=== PATIENT | female | born 1970 ===

== ENCOUNTER 2022-02-07 12:39 | Outpatient (CLI) | payer OTHER | END 2022-02-07 12:40 | disposition home or self-care (01) | LOC: CSHLAB 12:39 | PROVIDERS: ATTEND Internal Medicine Gastroenterology | DX: Z20.822 Contact with and (suspected) exposure to COVID-19 (principal); R10.9 Unspecified abdominal pain | CPT/HCPCS: 87811 ==

== ENCOUNTER 2022-03-06 15:33 | Outpatient (CLI) | payer OTHER | END 2022-03-06 15:34 | disposition home or self-care (01) | LOC: CSHLAB 15:33 | PROVIDERS: ATTEND Internal Medicine Gastroenterology | DX: R10.9 Unspecified abdominal pain (principal); Z20.822 Contact with and (suspected) exposure to COVID-19 | CPT/HCPCS: 87811 ==

== ENCOUNTER 2022-03-09 07:25 | Day surgery (SDC) | payer OTHER ==
[2022-02-07 14:16] VITALS: BMI 30.4
[2022-03-09] MEDS ORDERED: Lidocaine 1% MPF 2 ML VIAL ONE (08:04)
[2022-03-09] MEDS ORDERED: PROPOFOL 20 ML ONE (09:11)
== END 2022-03-09 11:35 | disposition home or self-care (01) ==
LOC: CSHSDC 07:25
PROVIDERS: ATTEND Internal Medicine Gastroenterology
PROC: 0DB68ZX Excision of Stomach, Via Natural or Artificial Opening Endoscopic, Diagnostic (ICD-10-PCS; principal; 2022-03-09)
PROC: 0DB38ZX Excision of Lower Esophagus, Via Natural or Artificial Opening Endoscopic, Diagnostic (ICD-10-PCS; principal; 2022-03-09)
DX: K21.00 Gastro-esophageal reflux disease with esophagitis, without bleeding (principal); K31.7 Polyp of stomach and duodenum; K44.9 Diaphragmatic hernia without obstruction or gangrene; M79.7 Fibromyalgia; K64.9 Unspecified hemorrhoids; Z79.899 Other long term (current) drug therapy; Z20.822 Contact with and (suspected) exposure to COVID-19; Z98.890 Other specified postprocedural states
CPT/HCPCS: 88305; J2704